=== PATIENT | female | born 1945 | race Caucasian/White ===

== ENCOUNTER 2018-09-22 07:15 | Day surgery (SDC) | payer MEDICARE, BC ==
[~2018-09-22 07:15] MED LIST: Acetaminophen TAB* 325 MG PO PRN; Buffered Lidocaine 0.9% SYRIN* 5 ML/SYR SYRINGE INTRADERM ONE
[2018-09-22] MEDS ORDERED: fentaNYL* 50 MCG/ML 2 ML VIAL (100 MCG VIAL) ONE (08:02)
[2018-09-22] MEDS ORDERED: Midazolam* 1 MG/ML 2 ML VIAL (2 MG) ONE (08:03)
[2018-09-22 08:40] VITALS: BP 129/69
[2018-09-22] MEDS ORDERED: Tetracaine 0.5% OPTH.SOL 4 ML* 1 DROP BTL ONE (12:24)
[2018-09-22] MEDS ORDERED: Tropicamide 1% OPTH.SOL* BTL ONE (12:24)
[2018-09-22] MEDS ORDERED: Lidocaine 1%* 5 ML VIAL ONE (12:24)
[2018-09-22] MEDS ORDERED: Neomycin/Polymy/Dex OPHTH.OIN* 3.5 GM ONE (12:24)
[2018-09-22] MEDS ORDERED: Cyclopentolate 1% OPTH.SOL* 2 ML BTL ONE (12:24)
[2018-09-22] MEDS ORDERED: Ketorolac 0.5% OPHTH (NF) 0.5 % 5 ML BTL ONE (12:24)
[2018-09-22] MEDS ORDERED: Phenylephrine 2.5% OPTH.SOL* 2 ML BTL ONE (12:24)
--- NOTE | 2018-09-22 13:05 | OP ---
DATE OF OPERATION: 09/22/18 [facility] DATE OF : 49 SURGEON: Hemal Morales MD APPOINTMENT SETTER: None. ANESTHESIA: Topical with intravenous sedation. PRE-OP DIAGNOSIS: Cataract, left eye. POST-OP DIAGNOSIS: Cataract, left eye. OPERATIVE PROCEDURE: Phacoemulsification and cataract extraction with posterior chamber intraocular lens implant, left eye. COMPLICATIONS: None. BLOOD LOSS: None. DESCRIPTION OF PROCEDURE: The patient was brought to the operating room and received a small amount of intravenous sedation. A drop of Tetracaine was placed in her left eye. The patient was prepped and draped in the usual sterile fashion for ophthalmic surgery and attention was directed to the left eye where a speculum was placed. A paracentesis was created at the 5 o'clock position and 0.1 cc of 1 percent preservative-free Lidocaine was injected into the anterior chamber followed by DisCoVisc. The eye was digitally stabilized while a 2.75 mm keratome was used to create a triplanar clear corneal incision at the 3 o'clock position. A continuous curvilinear capsulorrhexis was created with a cystotome and Utrata forceps. BSS on a cannula was used to hydrodissect the lens from the capsule. Phacoemulsification was performed in a divide-and- conquer technique to create four fragments which were removed. Residual cortical material was removed with irrigation and aspiration. DisCoVisc was used to inflate the capsular bag and an AUOOTO 19.5 diopter lens was folded and inserted into the capsular bag. DisCoVisc was removed using irrigation and aspiration. BSS on a cannula was used to hydrate the corneal stroma and seal the wound. At the end of the case the pupil was round and the lens was centered. The eye was of normal pressure and the wound was water tight. The speculum was removed and topical Maxitrol ointment was placed on the surface of the eye. The eye was closed, patched and shielded and the patient was sent to the recovery room in stable condition with post operative instructions and follow-up appointment given. [id number]/CPS #: [id number] MTDD
== END 2018-09-22 08:49 | disposition home or self-care (01) ==
LOC: OREAST 07:15
PROVIDERS: ATTEND Ophthalmology
DX: H26.9 Unspecified cataract (principal); H02.13 Senile ectropion of eyelid; E11.9 Type 2 diabetes mellitus without complications; I10 Essential (primary) hypertension; E78.2 Mixed hyperlipidemia; E55.9 Vitamin D deficiency, unspecified
CPT/HCPCS: A9270-GY; J2250; J3010; V2632

== ENCOUNTER 2018-09-29 09:07 | Day surgery (SDC) | payer MEDICARE, BC ==
[2018-09-29] MEDS ORDERED: Midazolam* 1 MG/ML 2 ML VIAL (2 MG) ONE (09:20)
[2018-09-29] MEDS ORDERED: fentaNYL* 50 MCG/ML 2 ML VIAL (100 MCG VIAL) ONE (09:20)
[2018-09-29 11:09] VITALS: BP 129/67
--- NOTE | 2018-09-29 15:13 | OP ---
DATE OF OPERATION/DATE OF DICTATION: 09/29/2018 - [facility] DATE OF : 1945. SURGEON: Dr. Hemal Morales. CAR PACKER: None. ANESTHESIA: Topical with intravenous sedation. PRE-OP DIAGNOSIS: Cataract, right eye. POST-OP DIAGNOSIS: Cataract, right eye. OPERATIVE PROCEDURE: Phacoemulsification and cataract extraction with posterior chamber intraocular lens implant, right eye. COMPLICATIONS: None. BLOOD LOSS: None. DESCRIPTION OF PROCEDURE: The patient was brought to the operating room and received a small amount of intra-venous sedation. A drop of Tetracaine was placed in her right eye. She was prepped and draped in the usual sterile fashion for ophthalmic surgery and attention was directed to the right eye where a speculum was placed. A paracentesis was created at the 11 o'clock position and 0.1 cc of 1 percent preservative-free Lidocaine was injected into the anterior chamber followed by DisCoVisc. The eye was digitally stabilized while a 2.75 mm keratome was used to create a triplanar clear corneal incision at the 9 o'clock position. A continuous curvilinear capsulorrhexis was created with a cystotome and Utrata forceps. BSS on a cannula was used to hydrodissect the lens from the capsule. Phacoemulsification was performed in a divide-and- conquer technique to create four fragments which were removed. Residual cortical material was removed with irrigation and aspiration. DisCoVisc was used to inflate the capsular bag and an AUOOTO 21.0 diopter lens was folded and inserted into the capsular bag. DisCoVisc was removed using irrigation and aspiration. BSS on a cannula was used to hydrate the corneal stroma and seal the wound. At the end of the case the pupil was round and the lens was centered. The eye was of normal pressure and the wound was water tight. The speculum was removed and topical Maxitrol ointment was placed on the surface of the eye. The eye was closed, patched and shielded and the patient was sent to the recovery room in stable condition with post operative instructions and follow-up appointment given. [id number]/CPS #: [id number] MTDD
[2018-09-29] MEDS ORDERED: Lidocaine 1%* 5 ML VIAL ONE (15:31)
[2018-09-29] MEDS ORDERED: Ketorolac 0.5% OPHTH (NF) 0.5 % 5 ML BTL ONE (15:31)
[2018-09-29] MEDS ORDERED: Neomycin/Polymy/Dex OPHTH.OIN* 3.5 GM ONE (15:31)
[2018-09-29] MEDS ORDERED: Tropicamide 1% OPTH.SOL* BTL ONE (15:31)
[2018-09-29] MEDS ORDERED: Phenylephrine 2.5% OPTH.SOL* 2 ML BTL ONE (15:31)
[2018-09-29] MEDS ORDERED: Cyclopentolate 1% OPTH.SOL* 2 ML BTL ONE (15:31)
[2018-09-29] MEDS ORDERED: Tetracaine 0.5% OPTH.SOL 4 ML* 1 DROP BTL ONE (15:31)
== END 2018-09-29 11:17 | disposition home or self-care (01) ==
LOC: OREAST 09:07
PROVIDERS: ATTEND Ophthalmology
DX: H25.11 Age-related nuclear cataract, right eye (principal); E11.9 Type 2 diabetes mellitus without complications; I10 Essential (primary) hypertension; E78.2 Mixed hyperlipidemia; K21.9 Gastro-esophageal reflux disease without esophagitis; E55.9 Vitamin D deficiency, unspecified
CPT/HCPCS: A9270-GY; J2250; J3010; V2632

== ENCOUNTER 2019-11-12 10:14 | Emergency (ER) | payer MEDICARE, BC ==
--- OUTSIDE RECORDS SUMMARY | 2019-11-12 10:21 | XMS REPORT | Summary of Care ---
:1945 Author Organization [facility] Address [address] [address] Care Team Providers Name Role Phone Cori Parson MD Primary Care Provider Reason for Visit Reason Comments Follow Up Left knee pain. Patient is here to discuss bone scan results. Encounter Details Date Type Department Care Team Description 11/05/2019 Office Visit [facility] - Tom Perez MD Trochanteric bursitis [place] [address] [facility] of both hips (Primary [address] [facility] [address]) [address] [place], [place] [id number] [place] [address] [phone] Allergies Active Allergy Reactions Severity Noted Date Comments Azithromycin Hives 05/02/2014 Kdc:Yellow Dye+Ci Pigment Blue 63+Paroxetine Rash 05/02/2014 documented as of this encounter (statuses as of 11/07/2019) Medications Medication Sig Dispensed Refills Start Date End Date Status simvastatin (ZOCOR) 20 Take 40 mg by 0 Active MG Oral Tab mouth EVERY BEDTIME. Multiple Vitamin Take by mouth. 0 Active (MULTI-VITAMIN DAILY PO) Cholecalciferol Take by mouth. 0 Active (VITAMIN D-3 PO) Calcium Carbonate-Vit Take by mouth. 0 Active D-Min (CALCIUM 1200 PO) MAGNESIUM PO Take 250 mg by 0 Active mouth. Rasagiline Mesylate Take by mouth. 0 Active (AZILECT) 1 MG Oral Tab carbidopa-levodopa Take 1 Tab by 0 Active (SINEMET) 25-100 MG mouth THREE TIMES Oral Tab DAILY. Cyanocobalamin (VITAMIN by Injection 0 Active B-12 PO) route. Venlafaxine HCl Take by mouth. 0 Active (EFFEXOR PO) Hospital, Clinic, or Other Ordered Dose Route Frequency Start Date End Date Status Facility Administered Medication methylPREDNISolone acetate 40 mg IM NOW 11/05/2019 11/05/2019 Ended (DEPO-MEDROL) injection 40 MG/MLIndications: Trochanteric bursitis of both hips documented as of this encounter (statuses as of 11/07/2019) Active Problems Problem Noted Date S/P total knee arthroplasty, bilateral 04/28/2018 Trochanteric bursitis, right hip 12/23/2017 Bilateral hip pain 10/15/2016 Chronic bilateral low back pain without sciatica 10/15/2016 Knee pain, bilateral 05/02/2014 documented as of this encounter (statuses as of 11/07/2019) Social History Tobacco Use Types Packs/Day Years Used Date Never Smoker Smokeless Tobacco: Never Used Alcohol Use Drinks/Week oz/Week Comments Yes Sex Assigned at Date Recorded Not on file Job Start Date Occupation Industry Not on file Not on file Not on file Travel History Travel Start Travel End No recent travel history available. documented as of this encounter Last Filed Vital Signs Vital Sign Reading Time Taken Comments Blood Pressure 117/70 11/05/2019 2:45 PM EST Pulse 69 11/05/2019 2:45 PM EST Temperature - - Respiratory Rate - - Oxygen Saturation - - Inhaled Oxygen Concentration - - Weight 89.4 kg (197 lb) 11/05/2019 2:45 PM EST Height 175.3 cm (5' 9") 11/05/2019 2:45 PM EST Body Mass Index 29.09 11/05/2019 2:45 PM EST documented in this encounter Progress Notes Tom Perez MD - 11/05/2019 2:30 PM EST Name: Rika Spann : 1945 Date of Service: 11/05/2019 Chief Complaint Patient presents with Follow Up Left knee pain. Patient is here to discuss bone scan results. History of Present Illness: Rika Spann is a 74-y.o. female. The above is noted. Pa. Nuñez is in today for follow-up ofthree-phase bone scan and also treatment of bilateral greater trochanteric bursitis. States that she has been having difficulty ambulating. The patient has Parkinson's disease and ambulates with the aid of a cane Physical Examination: BP 117/70 | Pulse 69 | Ht 5' 9" (1.753 m) | Wt 197 lb (89.4 kg) | BMI 29.09 kg/m Well-developed well-nourished female in minimal discomfort at rest. Patient has tenderness on palpation of her bilateral greater trochanters. Of note three-phase bone scan reveals no evidence of loosening of prostheses. Impression: Greater trochanteric bursitis bilateral Plan: Under sterile conditions the bilateral greater trochanteric bursae were injected with Marcaine and Depo-Medrol. 40 mg of Depo-Medrol were injected into the right greater trochanteric bursa, and 40 mg of Depo-Medrol was injected into the left greater trochanteric bursa. Patient tolerated the injections well afterwards Band-Aids were used to cover the puncture sites Plan is for the patient to follow-up in the office in approximately 6 weeks. All questions were answered. There are no Patient Instructions on file for this visit. Author: Tom Perez MD 11/05/2019 15:00 documented in this encounter Plan of Treatment Date Type Specialty Care Team Description 12/17/2019 Office Visit Orthopedics Tom Perez MD [address] [place] [id number] [phone] 05/12/2020 Office Visit Orthopedics Tom Perez MD [address] [place] [id number] Name Type Priority Associated Diagnoses Order Schedule INJECTION, JOINT Procedures Routine Trochanteric bursitis of Ordered: 11/05 SHOUDLER HIP KNEE OR both hips [facility] Health Maintenance Due Date Last Done Comments MEDICARE ANNUAL WELLNESS VISIT 1945 DTaP/Tdap/Td Vaccines (1 - Tdap) 1958 DEPRESSION SCREENING 1959 HIV SCREENING 1962 LIPID DISORDER SCREENING 1965 HEPATITIS C SCREENING 1987 MAMMOGRAM (SCREENING) 1987 Colonoscopy 1997 ZOSTER IMMUNIZATION SERIES (1 of 2) 1997 FALL RISK ASSESSMENT 2012 OSTEOPOROSIS SCREENING 2012 PNEUMOCOCCAL 65+YRS (1 of 2 - 2012 PCV13) INFLUENZA VACCINE (#1) 2019 HEPATITIS A IMMUNIZATION SERIES Aged Out No longer eligible based on patient's age to complete this topic HPV IMMUNIZATION SERIES Aged Out No longer eligible based on patient's age to complete this topic MENINGOCOCCAL VACCINE IMM Aged Out No longer eligible based on patient's age to complete this topic documented as of this encounter Results Not on filedocumented in this encounter Visit Diagnoses Diagnosis Trochanteric bursitis of both hips Enthesopathy of hip region documented in this encounter Administered Medications Medication Order MAR Action Action Date Dose Rate Site methylPREDNISolone acetate Given 11/05/2019 3:31 40 mg Hip - bilateral (DEPO-MEDROL) injection 40 PM EST MG/ML 40 mg, Intramuscular, NOW, 1 dose, Fri11/05/19 at 1540 documented in this encounter (Work) documented as of this encounter
--- OUTSIDE RECORDS SUMMARY | 2019-11-12 10:22 | XMS REPORT | Summary of Care ---
:1945 Author Organization [facility] Address [address] [address] Care Team Providers Name Role Phone Cori Parson MD Primary Care Provider Reason for Referral MRI/CAT/PET Scan (Routine) Status Reason Specialty Diagnoses / Procedures Referred By Contact Referred To Contact Closed Diagnoses S/P total knee arthroplasty, bilateral Tom Perez MD [facility] Procedures NM THREE PHASE BONE SCAN WHOLE BODY OR LIMITED [facility] [address] [place] [address] [place] [address] Reason for Visit Reason Comments Post-op Follow-up S/P total knee arthroplasty, bilateral. Patient states her left knee has become extremely painful, as she has fallen on it a few times. Encounter Details Date Type Department Care Team Description 10/26/2019 Office Visit [facility] - Tom Perez MD S/P total knee [place] [facility] arthroplasty, [address] [facility] [address] bilateral ([place] [address] Dx) [place] [address] [phone] Allergies Active Allergy Reactions Severity Noted Date Comments Azithromycin Hives 05/02/2014 Kdc:Yellow Dye+Ci Pigment Blue 63+Paroxetine Rash 05/02/2014 documented as of this encounter (statuses as of 10/28/2019) Medications Medication Sig Dispensed Refills Start Date [...] Take by mouth. 0 Active (EFFEXOR PO) documented as of this encounter (statuses as of 10/28/2019) Active Problems Problem Noted Date S/P total knee arthroplasty, bilateral 04/28/2018 Trochanteric bursitis, right hip 12/23/2017 Bilateral hip pain 10/15/2016 Chronic bilateral low back pain without sciatica 10/15/2016 Knee pain, bilateral 05/02/2014 documented as of this encounter (statuses as of 10/28/2019) Social History Tobacco Use Types Packs/Day Years [...] Sign Reading Time Taken Comments Blood Pressure 156/81 10/26/2019 3:14 PM EST Pulse 66 10/26/2019 3:14 PM EST Temperature - - Respiratory Rate - - Oxygen Saturation - - Inhaled Oxygen Concentration - - Weight 89.4 kg (197 lb) 10/26/2019 3:14 PM EST Height 175.3 cm (5' 9") 10/26/2019 3:14 PM EST Body Mass Index 29.09 10/26/2019 3:14 PM EST documented in this encounter Progress Notes Tom Perez MD - 10/26/2019 3:00 PM EST Name: Rika Spann : 1945 Date of Service: 10/26/2019 Chief Complaint Patient presents with Post-op Follow-up S/P total knee arthroplasty, bilateral. Patient states her left knee has become extremely painful,as she has fallen on it a few times. History of Present Illness: Rika A Zana is a 74-y.o. female. The above is noted. Patient is in today for follow-up of bilateral total knee arthroplasties. The patient had been doing fairly well but states that she has suffered several falls and is concerned about increased pain involving her left knee. The patient walks with the aid of a cane due to the fact that she has Parkinson's disease. Physical Examination: BP 156/81 | Pulse 66 | Ht 5' 9" (1.753 m) | Wt 197 lb (89.4 kg) | BMI 29.09 kg/m Well-developed well-nourished female in minimal discomfort at rest. Patient was examined she has full extension of her right knee she has full has flexion of her right knee to 115 degrees after which she has mild discomfort. She has no varus or valgus instability. Neurovascular she is intact. Examination of the left knee: Reveals full extension, she has flexion to 125 degrees. No varus or valgus instability. Patient walks with an unsteady gait secondary to her Parkinson's disease. Xrays reveal that the total knee components are in satisfactory position and alignment. Impression: Rule out loosening. We will obtain three-phase bone scan and see the patient back in the office after the bone scan has been obtained. Plan: Follow-up after bone scan completed All questions were answered. There are no Patient Instructions on file for this visit. Author: Tom Perez MD 10/26/2019 15:27 documented in this encounter Plan of Treatment Date Type Specialty Care Team Description 11/05/2019 Office Visit Orthopedics Tom Perez MD [address] [place] [address] [phone] 05/12/2020 Office Visit Orthopedics Tom Perez MD [address] [place] [address] [phone] Name Type Priority Associated Diagnoses Order Schedule NM THREE PHASE BONE Imaging Routine S/P total knee Expected: 10/26/2019, SCAN WHOLE BODY OR arthroplasty, bilateral Expires: 10/25/2020 LIMITED Health Maintenance Due Date Last Done Comments MEDICARE ANNUAL WELLNESS VISIT 1945 DEPRESSION SCREENING 1959 HIV SCREENING 1962 LIPID DISORDER SCREENING 1965 HEPATITIS C SCREENING 1987 MAMMOGRAM (SCREENING) 1987 Colonoscopy 1997 ZOSTER IMMUNIZATION SERIES (1 of 2) 1997 FALL RISK ASSESSMENT 2012 OSTEOPOROSIS SCREENING 2012 PNEUMOCOCCAL 65+YRS (1 of 2 - 2012 PCV13) INFLUENZA VACCINE (#1) 2019 HPV IMMUNIZATION SERIES Aged Out No longer eligible based on patient's age to complete this topic MENINGOCOCCAL VACCINE IMM Aged Out No longer eligible based on patient's age to complete this topic documented as of this encounter Results Not on filedocumented in this encounter Visit Diagnoses Diagnosis S/P total knee arthroplasty, bilateral - Primary documented in this encounter (Work) documented as of this encounter
--- OUTSIDE RECORDS SUMMARY | 2019-11-12 10:22 | XMS REPORT | Continuity of Care Document ---
:1945 External Reference #:[id number] Author Name Lilia Shane M.D. (transmitted by agent of provider Rani Alcaraz) Address [address] [facility], [place] [address] Care Team Providers Name Role Phone Cori Parson MD - Family Care Team Information [employer] [phone] Medicine Problems Active Problems Provider Date Parkinson's disease Lilia Shane M.D. Onset: 03/08/2015 Note: Deep Brain Stimulation: placed 11/28/14, [facility], Dr. Luis Christian Localized, primary osteoarthritis of the [facility] MD Rick Onset: 04/28/2018 ankle and/or foot Mood disorder Berry García M.D. Onset: 08/13/2019 Nervous system symptoms Berry García M.D. 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D. basket and seat. dx code: g20, r29.6 Azilect 1 by mouth every 90tabs Lilia Shane, 06/08/2014 1mg Tablets day M.D. Carbidopa-Levodopa 2 by mouth three 540tabs Lilia Shane, 06/08/2014 times a day M.D. 25-100mg Tablets Calcium 600-D 1 po daily 60tabs Unknown [id number] Tablets Multivitamin take1 po qday Unknown Magnesium 2 po qhs Unknown 250mg Tablets Simvastatin take 1 tablet by Unknown 40mg mouth qd Tablets Vitamin D-3 1 by mouth every Unknown 1000Unit day Capsules Probiotic Acidophilus 1 by mouth every Unknown day Capsules Effexor XR 1 by mouth every Unknown 75mg Caps ER day 24HR Melatonin 1 cap at bedtime Unknown 5mg Capsules Tylenol 8 Hour 1 by mouth once a Unknown Arthritis Pain day as needed 650mg Tablets ER Diclofenac Sodium 1 tab as needed Blegen, 75mg MD Cori Tablets DR Azelastine HCL use as needed for Blegen, (Nasal) allergies MD Cori 137mcg/Nixon Solution Influenza,Unspecified Unknown Injection Medications Administered in Office Medication SIG Qnty Indications Ordering Provider Date Triamcinolone (Kenalog) Shyam Cabrera MD 01/19/2019 Injection Triamcinolone (Kenalog) Shyam Cabrera MD 01/19/2019 Injection Triamcinolone (Kenalog) Shyam Cabrera MD 08/07/2018 Injection Influenza,Unspecified Unknown 08/02/2018 Injection Immunizations Description No Information Available Vital Signs Date Vital Result Comment 11/05/2019 10:54am Height 69 inches 5'9" Weight 197.00 lb Heart Rate 70 /min BP Systolic 122 mmHg BP Diastolic 84 mmHg BMI (Body Mass Index) 29.1 kg/m2 08/13/2019 10:45am Height 69 inches 5'9" Weight 196.00 lb Heart Rate 69 /min BP Systolic 138 mmHg BP Diastolic 98 mmHg BMI (Body Mass Index) 28.9 kg/m2 Results Description No Information Available Procedures Date Code Description Status 08/13/2019 52133 Neurostimulator Pulse Generator Analysis W/O Reprogramming Completed Medical Devices Description No Information Available Encounters Type Date Location Provider Dx Diagnosis Office Visit 08/13/2019 [facility] Berry García, G20 Parkinson' s 10:[facility] Azul disease R29.6 Repeated falls F06.30 Mood disorder due to known physiological condition, unsp Office Visit 05/14/2019 11:00a [facility] Lilia Shane [facility]2Rad [facility] Azul disease R29.6 Repeated falls F06.30 Mood disorder due to known physiological condition, unsp Assessments Date Code Description Provider 11/05/2019 G20 Parkinson's disease Lilia Shane M.D. 11/05/2019 G25.0 Essential tremor Lilia Shane M.D. 08/13/2019 G20 Parkinson's disease Berry García M.D. 08/13/2019 R29.6 Repeated falls Berry García M.D. 08/13/2019 F06.30 Mood disorder due to known physiological Berry García M.D. condition, unspecif 05/14/2019 G20 Parkinson's disease Lilia Shane M.D. 05/14/2019 R29.6 Repeated falls Lilia Shane M.D. 05/14/2019 F06.30 Mood disorder due to known physiological Lilia Shane M.D. condition, unspecif Plan of Treatment Future Appointment(s):05/19/2020 1:00 pm - Lilia Shane M.D. at [facility]02/15/2020 10:15 am - Berry García M.D. at [facility]11/05/2019 - Lilia Shane M.D.G20 Parkinson' s diseaseFollow up:6 azebhbR33.0 Essential tremor Functional Status Description No Information Available Mental Status Description No Information Available Referrals Description No Information Available
--- NOTE | 2019-11-12 10:25 | UC ---
Hand/Wrist HPI - HPI Summary HPI Summary: 74 yo female presents with LEFT hand injury. She tells me that 3 days ago she was lifting a bag onto her counter and she dropped it and it bent her left thumb backwards. She then fell onto her left hand with her thumb hyperextended. She rested, iced, and elevated, but since that time has had continued pain, swelling, and bruising. She is right handed. - History Of Current Complaint Stated Complaint: LEFT HAND INJURY Time Seen by Provider: 11/12/19 10:20 Hx Obtained From: Patient Onset/Duration: Sudden Onset Severity Initially: Moderate Severity Currently: Moderate Pain Intensity: 6 Pain Scale Used: 0-10 Numeric - Allergies/Home Medications Allergies/Adverse Reactions: Allergies Allergy/AdvReac Type Severity Reaction Status Date / Time azithromycin Allergy Severe Blisters Verified 09/22/18 07:25 paroxetine [From Paxil] Allergy Intermediate Rash Verified 09/29/18 09:26 haloperidol [From Haldol] AdvReac Severe See Comment Verified 09/29/18 09:26 metoclopramide [From Reglan] AdvReac Severe See Comment Verified 09/29/18 09:26 Phenothiazines AdvReac Severe See Comment Verified 09/29/18 09:26 BUTROPHENONES AdvReac Severe See Comment Uncoded 09/29/18 09:26 PMH/Surg Hx/FS Hx/Imm Hx - Additional Past Medical History Additional PMH: Parkinson's Endocrine History: Dyslipidemia Psychological History: Anxiety, Depression - Surgical History Surgical History: Yes Surgery Procedure, Year, and Place: right total knee replacement 2011 [facility]. [id number] - [facility]. left total knee replacement 2008 [facility]. left knee arthroscopy 2007 [facility]. right varicose vein surgery 2006 [facility] left varicose vein surgery 2006 - [facility]. right knee arthroscopy 2005 - [facility] right knee arthroscopy 2002- [facility]. cholecystectomy 1997 - [facility]. c-sections x2 1984, 1986 - [place]. deep brain stimulator placed 2013. appendectomy . lower bilateral blepharoplasties 1977. bilateral ectropion repair 2015 - [facility] - Social History Lives: With Family Alcohol Use: Rare Alcohol Amount: LESS THAN 1 MONTH Substance Use Type: None Smoking Status (MU): Never Smoked Tobacco Review of Systems All Other Systems Reviewed And Are Negative: No Constitutional: Positive: Negative Skin: Positive: Negative Neurovascular: Positive: Negative Musculoskeletal: Positive: Other: - Left thumb injury Neurological: Positive: Negative Psychological: Positive: Negative Physical Exam - Summary Physical Exam Summary: GENERAL: NAD. WDWN. No pain distress. SKIN: LEFT thumb and radial aspect with mild erythema and warmth with moderate edema. No abrasions or open wounds. CHEST: No accessory muscle use. Breathing comfortably and in no distress. CV: Pulses intact radial and ulnar. Cap refill <2seconds MSK: LEFT HAND: Moderate edema about left thumb MCP. Mild ttp about left thumb IP. Decreased ROM at MCP due to pain. No snuffbox tenderness. NEURO: Alert. Sensations intact hand and all fingers. PSYCH: Age appropriate behavior. Triage Information Reviewed: Yes Vital Signs: Vital Signs: Temp Pulse Resp BP Pulse Ox 97.7 F 78 16 113/65 99 11/12/19 10:21 11/12/19 10:21 11/12/19 10:21 11/12/19 10:21 11/12/19 10:21 Vital Signs Reviewed: Yes Diagnostics - Radiology Hand XR Radiology Interpretation Completed By: Radiologist Summary of Radiographic Findings: REPORT AND IMPRESSION: #. Negative for fracture or dislocation. #. 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 Associated loose bodies. 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 #. Nonfocal soft tissue swelling. Hand/Wrist Course/Dx - Course Course Of Treatment: XR as above. Suspect sprain. Given the degree of redness and swelling, I suspect there may be some degree of underlying cellulitis. I discussed this with the pt and she prefers to start anbx now instead of watchful waiting. She was placed in a thumb spica splint and will place her on clindamycin for cellulitis. Advised to continue RICE and f/u with Ortho if symptoms do not improve. - Differential Dx/Diagnosis Provider Diagnosis: Thumb sprain, Cellulitis Discharge ED - Sign-Out/Discharge Documenting (check all that apply): Patient Departure All imaging exams completed and their final reports reviewed: Yes - Discharge Plan Condition: Stable Disposition: HOME Prescriptions: Clindamycin HCl 300 mg PO TID #21 capsule Patient Education Materials: Cellulitis (ED), Finger Sprain (ED) Referrals: Cori Parson MD [Primary Care Provider] - Ezekiel Rocha MD [Medical Doctor] - As Soon As Possible Additional Instructions: If you develop a fever, shortness of breath, chest pain, new or worsening symptoms - please call your PCP or go to the ED immediately. 1) Continue to rest, ice, and elevate your hand 2) Use the thumb splint for comfort 3) If your symptoms do not improve within another 2-3 days, I recommend that you call Orthopedics at the number below to schedule an appointment for further evaluation. - Billing Disposition and Condition Condition: STABLE Disposition: Home
[2019-11-12 10:29] VITALS: BP 113/65
== END 2019-11-12 11:15 | disposition home or self-care (01) ==
LOC: UCEAST 10:14
DX: S63.602A Unspecified sprain of left thumb, initial encounter (principal); L03.012 Cellulitis of left finger; M19.042 Primary osteoarthritis, left hand; M79.89 Other specified soft tissue disorders; G20 Parkinson's disease; Z88.1 Allergy status to other antibiotic agents; Z88.8 Allergy status to other drugs, medicaments and biological substances; W18.30XA Fall on same level, unspecified, initial encounter; X50.0XXA Overexertion from strenuous movement or load, initial encounter; Y92.9 Unspecified place or not applicable
CPT/HCPCS: 99213; G0463